=== PATIENT | male | born 1960 | race Caucasian/White ===

== ENCOUNTER 2019-11-20 11:45 | Inpatient (IN) | payer SELFPAY ==
[~2019-11-20] VITALS: Ht 182.9 cm; Wt 100.9 kg
--- NOTE | ~2019-11-20 | EC ---
PATIENT:ANABELLA FANG DATE OF SERVICE: 11/20/19 SEX: M MEDICAL RECORD: [id number] DATE OF : 58 LOCATION:D.M2 D.210 AGE OF PATIENT: 59 ADMISSION DATE: 11/20/19 REFERRING PHYSICIAN: INTERPRETING PHYSICIAN: JOEY MONIQUE MD ECHOCARDIOGRAM REPORT ECHO CHARGES 4 ECHO COMPLETE Date: 11/21/19 CLINICAL DIAGNOSIS: HTN ECHOCARDIOGRAPHIC MEASUREMENTS (adult normal given) AC root (d.<3.7cm) 3.6 cm LV Septum d (<1.2 cm> 1.2 cm Valve Excursion 2.0 cm LV Septum (systole) 1.1 cm Left Atria (s.<4.0cm> 4.9 cm LVPW d(<1.2cm) 1.7 cm RV (d.<2.3cm) 4.1 cm LVPW (sytole) 1.6 cm LV diastole(<5.6CM) 6.0 cm MV E-F(>70mm/sec) cm LV systole 5.1 cm LVOT Diameter 2.1 cm MV exc.(>10mm) cm Est.ejection fraction (50-75%) 30 % DOPPLER: LVIT cm/sec A 81 cm/sec E 94 cm/sec LA cm/sec RVSP 32 mmHg LVOT 115 cm/sec AOP1/2T m/s Asc. Ao 147 cm/sec RVOT cm/sec RA cm/sec PA cm/sec AV Gradient Peak 8 mmHg AV Mean 5 mmHg AV Area 2.1 cm MV Gradient Peak mmHg MV Mean mmHg MV Area cm COMMENTS: Retail Security Professional: Jarod CHOI Purchaser: 5 Dr. Monique TAPE# Pericardial Effusion N DATE OF SERVICE: CLINICAL DIAGNOSES: Hypertension. INTERPRETATION: Dilated left ventricular chamber with severe global LV contractile dysfunction, ejection fraction 20% to 25%. Left atrial chamber mildly dilated. Right atrium and right ventricular chamber size and function appears normal. Aortic valve appears normal. No stenosis/regurgitation. Mitral valve appears normal. Trace mitral regurgitation. Tricuspid valve appears normal. Trivial tricuspid regurgitation. Pulmonic valve appears ECHOCARDIOGRAM REPORT [id number] ANABELLA FANG normal. No stenosis/regurgitation. No pericardial effusion visualized. IMPRESSION: Dilated left ventricular chamber with severe global LV contractile dysfunction with an ejection fraction 20% to 25%. TRANSINT:[id number] Voice Confirmation ID: [id number] DOCUMENT ID: [id number] JOEY MONIQUE MD CC: [id number] DICTATION DATE: 11/22/19 1242 LUMBER GRADER: 11/22/19 1519 ADM IN [address] [id number] [place] [address]
[2019-11-20 12:27] LABS: BASOPHILS 3.1 % (0-2); EOSINOPHILS 0 % (0-7); HEMATOCRIT 46.8 % (42.0-54.0); HEMOGLOBIN 15.7 g/dL (13.5-17.5); IMMATURE GRANULOCYTES 0.2 % (0-5); MCHC 33.5 g/dL (31.0-37.0); MCV 86.3 fL (80.0-100.0); MEAN PLATELET VOLUME 12.2 fL (7.4-10.4); MONOCYTES 14.6 % (2-11); NEUTROPHILS 39.1 % (40-80); RBC 5.42 10x6/uL (4.20-6.10); RDW 14.3 % (11.5-14.5); WBC 4.2 10x3/uL (4.8-10.8)
[2019-11-20 12:36] LABS: INR 0.93 (0.85-1.17); PROTIME 12.4 SECONDS (11.6-15.0)
[2019-11-20 12:46] LABS: CALC OSMOLALITY 284 mosm/kg (275-300); CALCIUM 8.5 mg/dL (8.5-10.1); CARBON DIOXIDE 26.6 mmol/L (21.0-32.0); CHLORIDE - SERUM 102 mmol/L (98-107); CREATININE - SERUM 2.8 mg/dL (0.6-1.3); GLUCOSE 146 mg/dL (74-106); POTASSIUM - SERUM 4.5 mmol/L (3.5-5.1); SODIUM 134 mmol/L (136-145); UREA NITROGEN 53 mg/dL (7-18); eGFR NON AFRICAN AMERICAN 25 mL/min (90-120)
[2019-11-20 12:48] LABS: PLATELET COUNT 30 10x3/uL (130-400)
[2019-11-20 12:50] LABS: PLATELET ESTIMATE DECREASED; PLATELET MORPHOLOGY NORMAL PLT MORPH
[2019-11-20 12:56] LABS: BILIRUBIN NEGATIVE (NEGATIVE); KETONE NEGATIVE (NEGATIVE); NITRITE NEGATIVE (NEGATIVE); UROBILINOGEN NORMAL mg/dL (< 2)
[2019-11-20 12:57] LABS: BACTERIA MANY HPF (NONE SEEN); EPITHELIAL CELLS 0-5 /hpf (0-5); WHITE CELLS - URINE 0-5 HPF (0-1)
[2019-11-20 12:58] LABS: GRANULAR CAST 0-5 LPF (NONE SEEN)
[2019-11-20 12:59] LABS: ALBUMIN 3.3 g/dL (3.4-5.0); ALKALINE PHOSPHATASE 69 U/L (30-120); ALT (SGPT) 104 U/L (10-68); BILIRUBIN - TOTAL 0.61 mg/dL (0.2-1.3); PROTEIN - SERUM 7.2 g/dL (6.4-8.2)
[2019-11-20 13:00] LABS: CREATINE KINASE 6191 UL (21-232)
[2019-11-20 13:02] LABS: TROPONIN-I 0.225 ng/mL (0.000-0.060)
[2019-11-20 13:32] VITALS: BP 141/88
[2019-11-20 15:09] VITALS: BP 145/94
[2019-11-20 19:09] VITALS: BP 140/87
[2019-11-20 19:11] LABS: CKMB 4.3 U/L (0.0-3.6)
[2019-11-20 19:15] LABS: CREATINE KINASE 4535 UL (21-232); TROPONIN-I 0.221 ng/mL (0.000-0.060)
[2019-11-20 22:00] VITALS: BP 146/92
[2019-11-21] VITALS (8 sets, daily range): BP systolic 133–157; BP diastolic 73–96; Ht 182.9 cm; Wt 100.9 kg
[2019-11-21 01:59] LABS: CKMB 3.2 U/L (0.0-3.6)
[2019-11-21 02:00] LABS: CREATINE KINASE 3726 UL (21-232); TROPONIN-I 0.176 ng/mL (0.000-0.060)
[2019-11-21 03:46] LABS: EOSINOPHILS 0 % (0-7); HEMATOCRIT 40.4 % (42.0-54.0); HEMOGLOBIN 13.2 g/dL (13.5-17.5); IMMATURE GRANULOCYTES 0.3 % (0-5); LYMPHOCYTES 48.9 % (15-50); MCH 28.8 pg (26.0-34.0); MCHC 32.7 g/dL (31.0-37.0); MEAN PLATELET VOLUME 11.6 fL (7.4-10.4); MONOCYTES 16.4 % (2-11); NEUTROPHILS 31.4 % (40-80); RBC 4.59 10x6/uL (4.20-6.10); RDW 14.3 % (11.5-14.5)
[2019-11-21 03:49] LABS: WBC 3.1 10x3/uL (4.8-10.8)
[2019-11-21 04:02] LABS: CKMB 3.1 U/L (0.0-3.6)
[2019-11-21 04:03] LABS: ALBUMIN 2.6 g/dL (3.4-5.0); ANION GAP 6.8 mmol/L (8-16); BILIRUBIN - TOTAL 0.63 mg/dL (0.2-1.3); CALCIUM 7.7 mg/dL (8.5-10.1); CARBON DIOXIDE 28.6 mmol/L (21.0-32.0); CREATINE KINASE 3841 UL (21-232); MAGNESIUM - SERUM 1.8 mg/dL (1.8-2.4); PHOSPHOROUS 3.2 mg/dL (2.5-4.9); POTASSIUM - SERUM 4.4 mmol/L (3.5-5.1); PROTEIN - SERUM 5.5 g/dL (6.4-8.2)
[2019-11-21 04:04] LABS: CREATININE - SERUM 1.4 mg/dL (0.6-1.3)
[2019-11-21 04:07] LABS: PLATELET COUNT 29 10x3/uL (130-400)
--- NOTE | 2019-11-21 06:41 | NUR ---
COVID SWAB TAKEN TO LAB
--- NOTE | 2019-11-21 06:55 | NUR ---
PT REPORT FROM ANY RUEDA AT THIS TIME
--- NOTE | 2019-11-21 08:00 | NUR ---
PT AWAKE AND ALERT, PT HAS ESSIENTAL TREMOR, BUT CAN AMBULATE WITH STAND BY ASSIST. RESP EVEN AND NON LABORED, LUNGS CTA, WITH DIMINISHED BASES. ABD ROUNDED AND SOFT BS X 4 HYPOACTIVE, 2+ EDEMA NOTED TO LOWER LEGS AND FEET
--- NOTE | 2019-11-21 15:05 | NUR ---
01 SAT 98% ON RA WHILE AMBULATING HALLWAY.
--- NOTE | 2019-11-21 15:57 | NUR ---
PT ARRIVED VIA STRETCHER TO ROOM. TRANSFERED WITH ASSISTED BED TO BED. AT BEDSIDE. PT DOES NOT SPEAK OFTEN, ANSWERS MOST QUESTIONS. CL IN REACH, SRX2.
--- NOTE | 2019-11-21 19:30 | NUR ---
RECEIVED REPORT, WILL ASSUME CARE OF PT, AT BEDSIDE, MONIK-JOSE PONCE-D5NS @125, BED IS LOW, SRX2, CALL LIGHT IN REACH, WILL CONTINUE PLAN OF CARE
[2019-11-22 00:30] VITALS: BP 137/85
[2019-11-22 04:30] VITALS: BP 140/91
--- NOTE | 2019-11-22 05:00 | NUR ---
I have reviewed this patient and I concur with the Shift Assessment completed by the Licensed Practical Nurse today this shift.
[2019-11-22 07:29] LABS: ALBUMIN 2.4 g/dL (3.4-5.0); ALKALINE PHOSPHATASE 78 U/L (30-120); BILIRUBIN - TOTAL 0.78 mg/dL (0.2-1.3); CALCIUM 7.5 mg/dL (8.5-10.1); CARBON DIOXIDE 27.6 mmol/L (21.0-32.0); CHLORIDE - SERUM 109 mmol/L (98-107); GLUCOSE 122 mg/dL (74-106); MAGNESIUM - SERUM 1.7 mg/dL (1.8-2.4); PHOSPHOROUS 2.5 mg/dL (2.5-4.9); POTASSIUM - SERUM 3.8 mmol/L (3.5-5.1); PROTEIN - SERUM 5.4 g/dL (6.4-8.2); SODIUM 143 mmol/L (136-145)
[2019-11-22 07:30] LABS: ALT (SGPT) 175 U/L (10-68); CALC OSMOLALITY 285 mosm/kg (275-300); CREATININE - SERUM 0.9 mg/dL (0.6-1.3); UREA NITROGEN 13 mg/dL (7-18); eGFR NON AFRICAN AMERICAN > 90 mL/min (90-120)
[2019-11-22 08:32] VITALS: BP 144/103
[2019-11-22 09:14] LABS: HEMATOCRIT 38.8 % (42.0-54.0); HEMOGLOBIN 12.7 g/dL (13.5-17.5); MCH 28.9 pg (26.0-34.0); MCHC 32.7 g/dL (31.0-37.0); MCV 88.4 fL (80.0-100.0); MEAN PLATELET VOLUME 11.2 fL (7.4-10.4); RBC 4.39 10x6/uL (4.20-6.10); RDW 14.2 % (11.5-14.5); WBC 2.4 10x3/uL (4.8-10.8)
[2019-11-22 09:16] LABS: PLATELET COUNT 39 10x3/uL (130-400)
[2019-11-22 09:31] LABS: LYMPHOCYTES 58 % (15-50); MONOCYTES 3 % (2-11); NEUTROPHILS 35 % (40-80); PLATELET ESTIMATE DECREASED
[2019-11-22 12:40] VITALS: BP 146/90
--- NOTE | 2019-11-22 12:50 | NUR ---
PT AWAKE AND CONFUSED HWEN I ENTERED ROOM THIS AM. AT BEDISDE. NO MEDICATIONS ORDERED, BUT PT APPEARED TO EAT EFFECTIVELY AND WITHOUT DIFFICULTY. PT IS MORE TALKATVIE TODAY THAT UPON ADMISSION YESTERDAY EVENING. ABLE TO TRANSFER TO BEDSIDE COMMODE WITHOUT DIFFICULTY. WILL CNT. TO MONITOR. CL IN REACH, SRX2.
--- NOTE | 2019-11-22 15:15 | NUR ---
PT AWAKE AND CONFUSED. ACCIDENTALLY PULLED ON 18LH IV. AKASH PATTERSON. PT HAS WORKING 20G RH IV. PLACED IV ON THAT SIDE. NO COMPLAINTS OR CONCERNS AT THIS TIME. CL IN REACH, SRX2.
--- NOTE | 2019-11-22 15:29 | NUR ---
I have reviewed this patient and I concur with the Shift Assessment completed by the Licensed Practical Nurse today this shift.
[2019-11-22 16:13] VITALS: BP 134/80
--- NOTE | 2019-11-22 19:30 | NUR ---
RECEIVED REPORT, WILL ASSUME CARE OF PT,DENIES ANY NEEDS AT THIS TIME, BED IS LOW, SRX2, CALL LIGHT IN REACH, WILL CONTINUE PLAN OF CARE
[2019-11-22 20:46] VITALS: BP 124/86
[2019-11-22 23:48] LABS: BILIRUBIN NEGATIVE (NEGATIVE); KETONE NEGATIVE (NEGATIVE); NITRITE NEGATIVE (NEGATIVE); UROBILINOGEN 8 mg/dL (< 2)
[2019-11-22 23:49] LABS: BACTERIA FEW HPF (NONE SEEN); EPITHELIAL CELLS 0-5 /hpf (0-5); WHITE CELLS - URINE 0-5 HPF (0-1)
[2019-11-23 01:31] VITALS: BP 148/97
--- NOTE | 2019-11-23 01:37 | NUR ---
I have reviewed this patient and I concur with the Shift Assessment completed by the Licensed Practical Nurse today this shift.
[2019-11-23 05:41] VITALS: BP 142/90
[2019-11-23 07:41] LABS: ALBUMIN 2.6 g/dL (3.4-5.0); ALKALINE PHOSPHATASE 99 U/L (30-120); ALT (SGPT) 217 U/L (10-68); BILIRUBIN - TOTAL 0.95 mg/dL (0.2-1.3); CALC OSMOLALITY 285 mosm/kg (275-300); CALCIUM 7.8 mg/dL (8.5-10.1); CARBON DIOXIDE 29.1 mmol/L (21.0-32.0); CHLORIDE - SERUM 109 mmol/L (98-107); CREATININE - SERUM 0.9 mg/dL (0.6-1.3); GLUCOSE 113 mg/dL (74-106); MAGNESIUM - SERUM 1.7 mg/dL (1.8-2.4); PHOSPHOROUS 2.4 mg/dL (2.5-4.9); POTASSIUM - SERUM 3.5 mmol/L (3.5-5.1); PROTEIN - SERUM 6.2 g/dL (6.4-8.2); SODIUM 144 mmol/L (136-145); UREA NITROGEN 8 mg/dL (7-18); eGFR NON AFRICAN AMERICAN > 90 mL/min (90-120)
[2019-11-23 08:02] VITALS: BP 168/100
--- NOTE | 2019-11-23 08:55 | NUR ---
PT AWAKE AND CONFUSED, AT BEDSIDE. KEPT NPO FOR BONE BIOPSY PROCEDURE. CONSENTS SIGNED. WAITING ON IR. CL NI REACH, SRX2, WILL CNT. TO MONITOR.
[2019-11-23 09:44] LABS: APTT 26.5 SECONDS (22.8-39.4); INR 0.97 (0.85-1.17); PROTIME 12.8 SECONDS (11.6-15.0)
[2019-11-23 10:20] LABS: CREATINE KINASE 701 UL (21-232)
[2019-11-23 10:51] LABS: CKMB 1.7 U/L (0.0-3.6)
[2019-11-23 11:56] VITALS: BP 127/90
[2019-11-23 17:26] VITALS: BP 150/64
--- NOTE | 2019-11-23 17:49 | NUR ---
PT AWAKE AND ORIETNED, LYING IN BED. CONFSUED AT TIMES. AT BEDSIDE. NO COMPLAINTS OR CONCERNS AT THIS TIME. CL IN REACH, SRX2.
--- NOTE | 2019-11-23 18:01 | NUR ---
I have reviewed this patient and I concur with the Shift Assessment completed by the Licensed Practical Nurse today this shift.
[2019-11-23 23:15] VITALS: BP 145/94
[2019-11-24 03:03] VITALS: BP 162/99
[2019-11-24 03:07] LABS: HEPATITIS C ANTIBODY 0.1 S/CO RAT (0.0-0.9)
[2019-11-24 05:36] LABS: ALBUMIN 2.5 g/dL (3.4-5.0); ALKALINE PHOSPHATASE 107 U/L (30-120); ALT (SGPT) 201 U/L (10-68); BILIRUBIN - TOTAL 0.74 mg/dL (0.2-1.3); CALC OSMOLALITY 281 mosm/kg (275-300); CARBON DIOXIDE 28.3 mmol/L (21.0-32.0); CHLORIDE - SERUM 109 mmol/L (98-107); GLUCOSE 119 mg/dL (74-106); PROTEIN - SERUM 6.4 g/dL (6.4-8.2); SODIUM 142 mmol/L (136-145); UREA NITROGEN 8 mg/dL (7-18); eGFR NON AFRICAN AMERICAN 81 mL/min (90-120)
[2019-11-24 06:11] VITALS: BP 167/100
[2019-11-24 07:00] VITALS: BP 145/98
--- NOTE | 2019-11-24 07:20 | NUR ---
RECIEVE REPORT. ALERT AND ORIENTED X4. SITTING UP IN BED. SPOUSE AT BEDSIDE. DENIES ANY NEEDS. NO SIGNS OF DISTRESS. CONTINUE PLAN OF CARE AND SAFETY PRECAUTIONS.
[2019-11-24 07:54] LABS: BASOPHILS 0.4 % (0-2); EOSINOPHILS 1.2 % (0-7); HEMATOCRIT 40.7 % (42.0-54.0); HEMOGLOBIN 12.9 g/dL (13.5-17.5); IMMATURE GRANULOCYTES 0.4 % (0-5); LYMPHOCYTES 60.5 % (15-50); MCH 28.5 pg (26.0-34.0); MCHC 31.7 g/dL (31.0-37.0); MCV 89.8 fL (80.0-100.0); MEAN PLATELET VOLUME 12.1 fL (7.4-10.4); MONOCYTES 21.4 % (2-11); NEUTROPHILS 16.1 % (40-80); RBC 4.53 10x6/uL (4.20-6.10); RDW 13.9 % (11.5-14.5); WBC 2.4 10x3/uL (4.8-10.8)
[2019-11-24 07:58] LABS: PLATELET COUNT 102 10x3/uL (130-400)
[2019-11-24 10:30] VITALS: BP 150/80
[2019-11-24] MEDS ORDERED: CHRONULAC30 ML PO (11:38)
[2019-11-24 13:11] LABS: CREATININE - URINE 81.7 mg/dL (Not Estab.); MICROALBUMIN - URINE 63.9 ug/mL (Not Estab.)
--- NOTE | 2019-11-24 14:36 | NUR ---
ALERT AND ORIENTED X4. SITTING UP IN BED. SPOUSES AT BEDSIDE. DISCHARGE INSTRUCTIONS GIVEN VERBALLY AND WRITTEN. DISCHARGE PAPERS SIGNED ON CHART. DC RT FA IV TIP INTACT. ESCORT TO RIDE VIA WHEELCHAIR. REMAINS FREE FROM INJURY.
[2019-11-26 09:13] LABS: ANA REFLEX - DIRECT Negative (Negative)
== END 2019-11-24 15:08 | disposition home or self-care (01) | DRG 442 ==
LOC: D.ER 11:45 → D.M2 15:20 → D.EDHOLD 15:20 → D.M2 11-21 14:52
PROVIDERS: Emergency Medicine; Family Medicine; Internal Medicine Hematology & Oncology; Internal Medicine Nephrology; Radiology Diagnostic Radiology; Registered Nurse Nephrology; ADMIT Family Medicine; ATTEND Family Medicine
PROC: 07DR3ZX Extraction of Iliac Bone Marrow, Percutaneous Approach, Diagnostic (ICD-10-PCS; principal; 2019-11-23 13:20)
DX: K72.90 Hepatic failure, unspecified without coma (principal); N17.9 Acute kidney failure, unspecified; N39.0 Urinary tract infection, site not specified; E87.1 Hypo-osmolality and hyponatremia; M62.82 Rhabdomyolysis; B37.89 Other sites of candidiasis; E86.0 Dehydration; D69.6 Thrombocytopenia, unspecified; E83.42 Hypomagnesemia; B96.20 Unspecified Escherichia coli [E. coli] as the cause of diseases classified elsewhere